=== PATIENT | male | born 1980 | race Two or more races ===

== ENCOUNTER 2018-12-17 00:04 | Emergency (ER) | payer BC, OTHER ==
[~2018-12-17] VITALS: Ht 170.2 cm; Wt 99.8 kg
[2018-12-17 00:13] VITALS: BP 156/98
--- NOTE | 2018-12-17 00:33 | Emergency Room Report ---
History of Present Illness General Chief Complaint: Eye Problems Source: Patient Present Illness HPI He was hit by a hockey puck on the left orbit. The part glanced off his hockey stick before hitting him in the eye. There was no loss of consciousness. He had a previous orbital floor fracture that required surgery. There is minimal bleeding. His tetanus is up-to-date. He placed ice on it. The swelling and pain is improved at this time. There is no change in vision. There is no neck pain. Pain is reported 3/10 and aching and sharp. There is some bruising. No nausea or vomiting. Patient denies medical problems at this time. Allergies: Coded Allergies: No Known Allergies (Unverified , 12/17/18) Patient History Past Medical History: see triage record Social History: Denies: smoking Social History Narrative information technology coordinator Reviewed Nursing Documentation: PMH: Agreed; PSxH: Agreed Nursing Documentation-PMH Past Medical History: No Stated History Review of Systems Constitutional: Denies: fever Eye: Reports: see HPI ENT: Reports: see HPI Musculoskeletal: Reports: see HPI Skin: Reports: see HPI Neurological: Reports: see HPI Hematologic/Lymphatic: Reports: see HPI Physical Exam Vital Signs Date Time Temp Pulse Resp B/P (MAP) Pulse Ox O2 Delivery O2 Flow Rate FiO2 12/17/18 00:08 97.9 87 16 156/98 (117) 96 Room Air Sp02 EP Interpretation: reviewed, normal General Appearance: well appearing, no apparent distress, GCS 15 Head: normocephalic Eyes: bilateral eye normal inspection, bilateral eye PERRL, bilateral eye EOMI ENT: moist mucus membranes, other - Swelling left cheek area with abrasions above and below the eye Neck: full range of motion, supple, no bony tend Respiratory: normal inspection Cardiovascular #1: regular rate, rhythm Cardiovascular #2: 2+ radial (R) Gastrointestinal: normal inspection Musculoskeletal: gait/station normal Neurologic: alert Skin: abrasions, hematoma, laceration - superficial 3 mm cheek Medical Decision Making Diagnostic Impression: Primary Impression: Facial contusion Qualified Codes: S00.83XA - Contusion of other part of head, initial encounter ER Course Patient presents post trauma to the left face and eye area. Differential includes orbital floor fracture, contusion, laceration, globe injury amongst others. Patient states his vision is normal and there is no physical evidence of globe rupture. CT of the maxillofacial bones is indicated. The patient's declining sutures as well as glue and analgesia. The wound will be cleaned and Neosporin will be applied. Maxillofacial CT with prior orbital plate no acute fracture. Sinus cyst. Discussed findings with patient and treatment plan. Patient stable for outpatient observation and treatment. CT/MRI/US Diagnostic Results CT/MRI/US Diagnostic Results : Imaging Test Ordered: Maxillofacial Impression Retention cysts Last Vital Signs Date Time Temp Pulse Resp B/P (MAP) Pulse Ox O2 Delivery O2 Flow Rate FiO2 12/17/18 01:55 97.9 77 17 156/98 96 Room Air Status: improved Disposition: HOME, SELF-CARE Condition: Improved Scripts Ibuprofen* (MOTRIN*) 600 Mg Tablet 600 MG ORAL Q6H PRN for For Pain, #20 TAB 0 Refills Prov: Braxton Cervantes MD 12/17/18 Bacitracin (Bacitracin) 28.4 Gm Oint...g. 1 APPLIC TOPIC BID, #20 GM Prov: Braxton Cervantes MD 12/17/18 Braxton Cervantes MD Dec 17, 2018 00:33
[2018-12-17] MEDS ORDERED: Acetaminophen 500mg (ES) tab PO ONE (00:45)
[2018-12-17] MEDS ORDERED: Neosporin Oint Ud Pkt TOP ONE (00:45)
--- NOTE | 2018-12-17 01:33 | Diagnostic Imaging Report ---
Indication: Orbital and maxillofacial trauma and pain Technique: Continuous helical transaxial imaging of the orbits/maxillofacial structures obtained without intravenous contrast administration. Coronal 2-D reformats were also obtained. Study obtained in a Siemens sensation [address] Automatic Exposure Control was utilized. Total Dose length Product (DLP): [address] Dose Index Volume (CTDIvol): 0.15, 28.19 mGy Comparison: None Findings: No acute fracture is identified. There is a frontal and left periorbital/facial soft tissue swelling and hematoma. The maxillary sinuses are opacified. These are fluid retention cysts bilaterally noted. There is minimal mucosal thickening in ethmoid sinus. There is no proptosis demonstrated no evidence of retrobulbar hemorrhage. The globes are symmetric. The mastoids are clear bilaterally. TMJs are unremarkable. IMPRESSION: Left periorbital and facial contusion/hematoma. No acute fracture. The CT scanner at [facility] is accredited by the [employer] and the scans are performed using dose optimization techniques as appropriate to a performed exam including Automatic Exposure control.
[2018-12-17] MEDS ORDERED: IBUPROFEN600 MG ORAL (01:50)
[2018-12-17] MEDS ORDERED: BACITRACIN15 GM TOPIC (01:50)
[2018-12-17 01:55] VITALS: BP 156/98
== END 2018-12-17 01:55 | disposition home or self-care (01) ==
LOC: EMR 01:40
DX: S00.83XA Contusion of other part of head, initial encounter (principal); W21.220A Struck by ice hockey puck, initial encounter; Y93.69 Activity, other involving other sports and athletics played as a team or group; Y92.9 Unspecified place or not applicable
CPT/HCPCS: 70486; 99284

== ENCOUNTER → 2020-03-25 | Outpatient (CLI) | payer SELFPAY ==
[~2020-03-25] MED LIST: BACITRACIN15 GM TOPIC; IBUPROFEN600 MG ORAL
== END | disposition home or self-care (01) ==
LOC: LAB 12:45
DX: Z20.828 Contact with and (suspected) exposure to other viral communicable diseases (principal); J06.9 Acute upper respiratory infection, unspecified
CPT/HCPCS: U0002